=== PATIENT | male | born 1980 | race Caucasian/White ===

== ENCOUNTER 2017-02-28 19:26 | Emergency (ER) | payer OTHER ==
[~2017-02-28] VITALS: Ht 170.1 cm; Wt 56.7 kg
[~2017-02-28 19:26] MED LIST: CODEINE; DAYPRO600 M1 PO; FLEXERIL10 MG PO; KEFLEX500 MG PO; MEDROL DOSEPAK4 MG PO; MIRALAX17 GM/PACK PO; NAPROSYN500 MG PO; NKHM; TRAMADOL HCL50 MG PO; TUCKS TP; VICODIN 5/500 505 MG PO
[2017-02-28 19:31] VITALS: BP 145/86
[2017-02-28] MEDS ORDERED: KEFLEX500 M1 PO (21:32)
[2017-02-28] MEDS ORDERED: ULTRAM50 MG PO (21:32)
== END 2017-02-28 21:46 | disposition home or self-care (01) ==
LOC: ED 19:26
DX: S71.111A Laceration without foreign body, right thigh, initial encounter (principal); F17.200 Nicotine dependence, unspecified, uncomplicated; W31.2XXA Contact with powered woodworking and forming machines, initial encounter; Y93.H3 Activity, building and construction; Y92.89 Other specified places as the place of occurrence of the external cause; Y99.8 Other external cause status

== ENCOUNTER → 2017-03-08 | Emergency (ER) | payer OTHER ==
[~2017-03-08] VITALS: Ht 182.8 cm; Wt 70.3 kg
[~2017-03-08] MED LIST changes: +KEFLEX500 M1 PO; +ULTRAM50 MG PO
[2017-03-08 12:41] VITALS: BP 122/70
== END ==
LOC: ED 12:29
DX: S71.111D Laceration without foreign body, right thigh, subsequent encounter (principal); W31.89XD Contact with other specified machinery, subsequent encounter

== ENCOUNTER → 2017-11-01 | Outpatient (CLI) | payer OTHER ==
[2017-11-01 08:47] LABS: HEMATOCRIT 41.7 % (42.0-52.0); HEMOGLOBIN 13.7 g/dl (14.0-18.0); MEAN CELL VOLUME 96.8 fl (80.0-94.0); MEAN CORPUSCULAR HGB 31.8 pg (27.0-31.0); MEAN CORPUSCULAR HGB CONC 32.9 g/dl (33.0-37.0); MEAN PLATELET VOLUME 9.9 fl (9.6-12.3); RED BLOOD COUNT 4.31 10*6/uL (4.50-5.90); RED CELL DISTRI WIDTH 12.5 % (0-14.5); WHITE BLOOD COUNT 6.6 10*3/uL (4.8-10.8)
[2017-11-01 09:18] LABS: ALKALINE PHOSPHATASE 73 U/L (45-117); BUN 21 mg/dl (7-24); CHLORIDE 108 mmol/L (98-107); CPK 123 U/L (39-308); CREATININE 1.03 mg/dL (0.70-1.30); POTASSIUM 4.2 mmol/L (3.5-5.1); SGOT/AST 13 IU/L (3-35); SGPT/ALT 20 U/L (12-78); SODIUM 142 mmol/L (136-145); TOTAL PROTEIN 6.8 gm/dL (6.4-8.2)
== END | disposition home or self-care (01) ==
LOC: LAB 08:10
PROVIDERS: Family Medicine
DX: M79.1 Myalgia (principal); E74.9 Disorder of carbohydrate metabolism, unspecified; M79.642 Pain in left hand; M79.641 Pain in right hand

== ENCOUNTER 2017-12-14 08:32 | Emergency (ER) | payer OTHER ==
[~2017-12-14] VITALS: Ht 170.1 cm; Wt 56.7 kg
[2017-12-14 08:34] VITALS: BP 148/84
[2017-12-14] MEDS ORDERED: AMOXICILLIN500 M2 PO (08:59)
== END 2017-12-14 09:15 | disposition home or self-care (01) ==
LOC: ED 08:32
DX: J02.9 Acute pharyngitis, unspecified (principal); J40 Bronchitis, not specified as acute or chronic; R51 Headache; H92.03 Otalgia, bilateral; H57.13 Ocular pain, bilateral; J43.9 Emphysema, unspecified

== ENCOUNTER 2017-12-23 19:10 | Emergency (ER) | payer OTHER ==
[~2017-12-23] VITALS: Wt 54.4 kg
[~2017-12-23 19:10] MED LIST changes: +AMOXICILLIN500 M2 PO
[2017-12-23 19:11] VITALS: BP 146/87
== END 2017-12-23 20:25 | disposition home or self-care (01) ==
LOC: ED 19:10
DX: T15.02XA Foreign body in cornea, left eye, initial encounter (principal); X58.XXXA Exposure to other specified factors, initial encounter; Y93.89 Activity, other specified; Y92.89 Other specified places as the place of occurrence of the external cause; Y99.8 Other external cause status